=== PATIENT | female | born 1995 | race Caucasian/White ===

== ENCOUNTER → 2016-04-28 | Outpatient (CLI) | payer MEDICAID ==
--- NOTE | 2016-04-28 10:41 | RADRPT ---
PROCEDURE: OB Ultrasound. CLINICAL INDICATION: Positive test. Uncertain size and dates. TECHNIQUE: Ultrasound of the pelvis was performed with transabdominal sonography in the axial and sagittal planes. COMPARISON: No prior study is available for comparison. FINDINGS: There is a single intrauterine gestational sac. pole and yolk sac are present. There is heart motion. heart rate is 152 beats per minute. [place]-rump length is 2.63 cm. Mean sac diameter is 4.10 cm. Menstrual age by ultrasound dates is 9 weeks 4 days. This indicates an expected date of delivery of 11/27/2016. The right ovary measures 3.3 x 1.5 x 2.1 cm. The left ovary measures 3.2 x 1.7 x 1.9 cm. Color Doppler and pulsed Doppler sonography demonstrate normal flow to both ovaries. There is no ovarian enlargement or mass. There is no other pelvic mass or free fluid. IMPRESSION: 1. Single live intrauterine gestation of 9 weeks 4 days menstrual age by ultrasound dates. 2. Expected date of delivery is 11/27/2016. RPTAT: QQ .Sharif Carver MD, Date Time Electronically viewed and signed by .Sharif Carver MD, on 04/28/2016 10:41 .R/
== END | disposition home or self-care (01) ==
LOC: U/S 09:35
PROVIDERS: ATTEND Obstetrics & Gynecology
DX: O26.841 Uterine size-date discrepancy, first trimester (principal); Z3A.00 Weeks of gestation of pregnancy not specified
CPT/HCPCS: 76801

== ENCOUNTER 2016-11-20 14:09 | Inpatient (IN) | payer MEDICAID ==
[~2016-11-20] VITALS: Ht 160 cm; Wt 118.0 kg
[~2016-11-20 14:09] MED LIST: OXYTOCIN 30 UNITS/LR 500 ML BAG IV ONE
[2016-11-20] MEDS ORDERED: LACTATED RINGER'S 1,000 ML IV SCH (14:26)
[2016-11-20 14:28] VITALS: Ht 160 cm; Wt 118.0 kg
[2016-11-20] MEDS ORDERED: OXYTOCIN 30 UNITS/LR 500 ML IV PRN ×2 (14:30→21:00)
[2016-11-20] MEDS ORDERED: METHYLERGONOVINE 0.2 MG INJ IM PRN ×2 (14:30→21:00)
[2016-11-20] MEDS ORDERED: CEFAZOLIN 2 GM/50 ML (PMX) 50 ML IV SCH (14:30)
[2016-11-20] MEDS ORDERED: CARBOPROST 250 MCG INJ IM PRN ×2 (14:30→21:00)
[2016-11-20] MEDS ORDERED: MISOPROSTOL 200 MCG TAB PR PRN ×2 (14:30→21:00)
[2016-11-20] MEDS ORDERED: OXYTOCIN 30 UNITS/LR 500 ML IV SCH (14:30)
[2016-11-20 15:03] LABS: BASOPHILS % 0.3 % (0.0-2.0); EOSINOPHILS # 0.1 10^3/ul (0.0-0.5); EOSINOPHILS % 0.7 % (0.0-7.0); HEMATOCRIT 35.8 % (37.0-47.0); HEMOGLOBIN 12.3 g/dl (12.0-16.0); LYMPHOCYTES # 2.3 10^3/ul (0.8-2.9); LYMPHOCYTES % 21.7 % (15.0-51.0); MEAN CORPUSCULAR HEMOGLOBIN 29.4 pg (29.0-33.0); MEAN CORPUSCULAR HGB CONC 34.4 g/dl (32.0-37.0); MEAN CORPUSCULAR VOLUME 85.6 fl (82.0-101.0); MEAN PLATELET VOLUME 10.2 fl (7.4-10.4); MONOCYTE # 0.6 10^3/ul (0.3-0.9); MONOCYTES % 5.9 % (0.0-11.0); NEUTROPHILS % 71.1 % (39.0-77.0); PLATELET COUNT 299 10^3/UL (140-415); RED BLOOD COUNT 4.18 10^6/ul (4.20-5.40); RED CELL DISTRIBUTION WIDTH 13.6 % (11.5-14.5); WHITE BLOOD COUNT 10.4 10^3/ul (4.8-10.8)
[2016-11-20 15:14] LABS: INR 0.88; PROTIME 11.9 Sec (12.2-14.2); PT RATIO 0.9
[2016-11-20] MEDS ORDERED: CITRIC ACID/NA CITRATE 30 ML CUP ONE (15:14)
[2016-11-20 15:15] LABS: PARTIAL THROMBOPLASTIN TIME 27.1 Sec (25.0-35.0)
[2016-11-20] MEDS ORDERED: ONDANSETRON 4 MG INJ IV STA (15:15)
[2016-11-20] MEDS ORDERED: ONDANSETRON 4 MG INJ ONE (15:15)
[2016-11-20] MEDS ORDERED: CITRIC ACID/NA CITRATE 30 ML CUP PO ONE (15:30)
[2016-11-20] MEDS ORDERED: METOCLOPRAMIDE 10 MG INJ ONE (15:35)
[2016-11-20] MEDS ORDERED: DEXTROSE 50% 50 ML SYRINGE ONE (15:35)
[2016-11-20] MEDS ORDERED: morphine SULFATE/PF (10 MG/10 ML) INJ ONE (15:35)
[2016-11-20] MEDS ORDERED: OXYTOCIN 10 UNIT INJ ONE (15:35)
[2016-11-20] MEDS ORDERED: PHENYLephrine (100 MCG/ML) 5ML SYG ONE (15:35)
[2016-11-20] MEDS ORDERED: KETOROLAC 30 MG INJ ONE (15:36)
[2016-11-20] MEDS ORDERED: HYDROCODONE/APAP (5/325) TAB PO PRN ×2 (16:00→21:00)
[2016-11-20] MEDS ORDERED: HYDROmorphONE 1 MG/ML SYG IV PRN ×2 (16:00)
[2016-11-20] MEDS ORDERED: morphine 4 MG/ML VIAL IV PRN (16:00)
[2016-11-20] MEDS ORDERED: KETOROLAC 30 MG INJ IV PRN (16:00)
[2016-11-20] MEDS ORDERED: NALBUPHINE HCL (10 MG/1 ML) INJ IV PRN (16:00)
[2016-11-20] MEDS ORDERED: morphine 2 MG INJ IV PRN (16:00)
[2016-11-20] MEDS ORDERED: ACETAMINOPHEN 500 MG TAB PO PRN (16:00)
[2016-11-20] MEDS ORDERED: ONDANSETRON 4 MG INJ IV PRN (16:00)
[2016-11-20] MEDS ORDERED: DIPHENHYDRAMINE 50 MG INJ IV PRN (16:00)
[2016-11-20] MEDS ORDERED: NALOXONE (0.4 MG/ML) INJ IV PRN (16:00)
--- NOTE | 2016-11-20 16:34 | HP ---
Date/Time of Note Date/Time of Note DATE: 11/20/16 TIME: 16:31 OB - History Hx of Present Free Text/Dictation admitted for repeat C/S Last Menstrual Period: Jan 23, 2017 Estimated Due Date: Nov 27, 2016 : 3 Para: 2 Care: Good Care Ultrasounds: Normal mid trimester US Obstetrical Complications: None Medical Complications: None Past Family/Social History * Past Medical, Surgical, Family and Obstetric Histories reviewed from chart. Blood Type: O+ Rubella: immune RPR/VDRL: Negative GBS Status: Unknown HBsAG: Negative OB Admission Exam Physical Exam HEENT: WNL Heart: Rhythm Normal Lungs: Clear, Equal Abdomen: WNL Extremities: Normal Reflexes: Normal Cervical Dilatation: None Effacement: 0% Station: -3 Membranes: Intact Heart Rate: 130's Accelerations: Accelerations Present Decelerations: No Decelerations Varibility: Marked Contractions on Admission: None Last 72 hours Lab Results CBC & BMP 11/20/16 14:40 OB Assessment/Plan Reason for admission: section Other Assessment: term gestation previous C/S X 2 Other plan: repeat C/S JOHNNIE MONTGOMERY MD Nov 20, 2016 16:34
--- NOTE | 2016-11-20 16:36 | OPR ---
Operative Report Planned Procedure Procedure date Nov 20, 2016 Procedure(s) repeat C/S Performed by: JOHNNIE MONTGOMERY MD Assisting provider: ZAIDA MORRISON MD Anesthesiologist: TYRONE MATOS MD Pre-procedure diagnosis term gestation previous C/S X 2 Anesthesia Type: spinal Procedure Description Under satisfactory anaesthesia a Pfannenstiel incision was made two fingerbreadth above and parallel to the symphysis of pubis around the previous scar and previous scar was removed Incision was extended laterally to the border of the Recti muscles on either sides. Incision was carried down with sharp and blunt dissection until fascia was reached. Anterior Recti muscle fascia was incised in mid portion and incision extended laterally to the border of skin incision. Fascia was mobilized from muscle superiorly and Recti muscles were from midline using sharp and blunt dissection. Peritoneum was visualized; Avoiding bowel and bladder it was incised . Incision was extended superiorly and inferiorly. Bladder blade was placed. Posterior peritoneum covering the lower segment of the uterus and lower segment of the uterus were incised.Low transverse uteine incision was made on lower segment of the uterus. Incision extended laterally to the border of Round Lig. on either sides and baby was delivered from OT. position . Amniotic fluid appeared clear. Cord blood was obtained and cord had 3 vessels . Placenta was delivered spontaneously and appeared intact and complete. Intrauterine cavity was rubbed with a laparotomy sponge. Uterine incision was closed in 2 layers using running stitches of No1 Monocryl. Hemostasis appeared secure. Ovaries and Fallopian tubes were within normal limits. Announcing needle, lap sponge and instrument count to be correct abdomen was closed in layers as follows: Peritoneum and Recti muscles with running stitches of 20 Vicryl. Fascia with running stitch of No 1 PDS. Subcutaneous tissue with running stitches of 20 Chromic and skin was closed using lea. Patient tolerated the procedure well and was transferred to [facility] in good condition. Post-Procedure Post-procedure diagnosis S/P C/S Findings: Live Baby normal R and L fallopian tubes and ovaries Specimen removed: No Complications: None Pt Condition post procedure: stable Disposition: PACU Physician Certification I, the undersigned physician, hereby certify that I have discussed the procedure described in this consent form with this patient (or the patient's legal eligibility services representative), including: * The risk and benefits of the procedure; * Any adverse reactions that may reasonably be expected to occur; * Any alternative efficacious methods of treatment which may be medically viable ; * The potential problems that may occur during recuperation; * Potential for blood transfusion and associated risks/benefits; and * Any research or economic interest I may have regarding this treatment. I further certify that the patient/legally responsible person was encouraged to ask question and that all questions were answered. JOHNNIE MONTGOMERY MD Nov 20, 2016 16:36
[2016-11-20 20:40] VITALS: BP 127/74; PULSE 67; RESP 19
[2016-11-20] MEDS ORDERED: NA PHOSPHATE/BIPHOS 133 ML ENEMA PR PRN (21:00)
[2016-11-20] MEDS: SENNA/DOCUSATE NA (8.6MG/50MG) TAB PO SCH (21:00)
[2016-11-20] MEDS ORDERED: LANOLIN 7 GM TUBE TOP PRN (21:00)
[2016-11-20 21:40] VITALS: BP 120/68; PULSE 70; RESP 18
[2016-11-20] MEDS: IBUPROFEN 800 MG TAB PO SCH (22:00)
[2016-11-21] VITALS: BP 128/71; PULSE 73; RESP 19
[2016-11-21] MEDS: CEFAZOLIN 2 GM/50 ML (PMX) 50 ML IV SCH ×3 (00:45→16:45)
[2016-11-21] MEDS: LACTATED RINGER'S 1,000 ML IV SCH ×4 (01:11→20:47)
[2016-11-21 04:00] VITALS: BP 130/61; PULSE 76; RESP 18
--- NOTE | 2016-11-21 04:37 | OPPN ---
Date/Time of Note Date/Time of Note DATE: 11/21/16 TIME: 04:36 Post-Anesthesia Notes Post-Anesthesia Note Last documented vital signs Vital Signs Date Time Temp Pulse Resp B/P Pulse Ox O2 Delivery O2 Flow Rate FiO2 11/21/16 04:00 98.7 76 18 130/61 Room Air 11/21/16 01:17 95 21 Activity: WNL Respiratory function: WNL Cardiovascular function: WNL Mental status: Baseline Pain reasonably controlled: Yes Hydration appropriate: Yes Nausea/Vomiting absent: Yes TYRONE MATOS MD Nov 21, 2016 04:36
[2016-11-21] MEDS: IBUPROFEN 800 MG TAB PO SCH ×3 (06:00→21:53)
[2016-11-21] MEDS: CLINDAMYCIN 300 MG CAP PO SCH ×4 (06:00→23:41)
[2016-11-21 08:00] VITALS: BP 109/56; PULSE 75; RESP 18
[2016-11-21] MEDS: SENNA/DOCUSATE NA (8.6MG/50MG) TAB PO SCH ×2 (09:54→20:34)
[2016-11-21] MEDS ORDERED: BISACODYL 10 MG SUPP PR ONE (10:00)
[2016-11-21 10:20] LABS: BASOPHILS % 0.3 % (0.0-2.0); EOSINOPHILS % 0.3 % (0.0-7.0); HEMATOCRIT 33.5 % (37.0-47.0); HEMOGLOBIN 11.2 g/dl (12.0-16.0); LYMPHOCYTES # 2.2 10^3/ul (0.8-2.9); LYMPHOCYTES % 20.1 % (15.0-51.0); MEAN CORPUSCULAR HEMOGLOBIN 29.2 pg (29.0-33.0); MEAN CORPUSCULAR HGB CONC 33.4 g/dl (32.0-37.0); MEAN CORPUSCULAR VOLUME 87.5 fl (82.0-101.0); MEAN PLATELET VOLUME 10.1 fl (7.4-10.4); MONOCYTE # 0.9 10^3/ul (0.3-0.9); MONOCYTES % 8.6 % (0.0-11.0); NEUTROPHILS % 70.4 % (39.0-77.0); PLATELET COUNT 244 10^3/UL (140-415); RED BLOOD COUNT 3.83 10^6/ul (4.20-5.40); RED CELL DISTRIBUTION WIDTH 13.5 % (11.5-14.5); WHITE BLOOD COUNT 10.9 10^3/ul (4.8-10.8)
[2016-11-21 12:34] VITALS: BP 102/56; PULSE 69; RESP 18
--- NOTE | 2016-11-21 15:31 | PN ---
Date/Time of Note Date/Time of Note DATE: 11/21/16 TIME: 15:29 Assessment/Plan VTE Prophylaxis VTE Prophylaxis Intervention: ambulation Lines/Catheters IV Catheter Type (from Nrsg): Peripheral IV Assessment/Plan Assessment/Plan Status post postop day 1 We will advance diet and ambulate Monitor vital signs Subjective 24 Hr Interval Summary Passing flatus No bowel movement Complaint of incisional pain Symptoms come Constitutional: BM, ambulates, flatus, improved, no complaints, urine output Pain Control: well controlled Exam/Review of Systems Vital Signs Vitals Vital Signs Date Time Temp Pulse Resp B/P Pulse Ox O2 Delivery O2 Flow Rate FiO2 11/21/16 12:34 98.1 69 18 102/56 Room Air 11/21/16 11:15 95 21 Intake and Output 11/20/16 11/20/16 11/21/16 15:00 23:00 07:00 Intake Total 1825 ml 1300 ml Output Total 990 ml 1000 ml Balance 835 ml 300 ml Exam Free Text/Dictation Abdomen is soft bowel sounds present Incision is covered Abdomen is tender around incision Drains None Results Result Diagram: 11/21/16 0950 JOHNNIE MONTGOMERY MD Nov 21, 2016 15:31
[2016-11-21 16:15] VITALS: BP 97/56; PULSE 62; RESP 18
[2016-11-21] MEDS: OXYCODONE/ACETAMINOPHEN (5/325) TAB PO PRN (17:08)
[2016-11-21 20:00] VITALS: BP 118/63; PULSE 63; RESP 20
[2016-11-22] MEDS ORDERED: BISACODYL 10 MG SUPP PR SCH (02:16)
[2016-11-22 04:00] VITALS: BP 112/89; PULSE 63; RESP 18
[2016-11-22] MEDS: LACTATED RINGER'S 1,000 ML IV SCH (04:47)
[2016-11-22] MEDS: IBUPROFEN 800 MG TAB PO SCH ×3 (06:07→21:38)
[2016-11-22] MEDS: CLINDAMYCIN 300 MG CAP PO SCH ×4 (06:07→23:46)
[2016-11-22 08:00] VITALS: BP 110/74; PULSE 63; RESP 16
[2016-11-22] MEDS: SENNA/DOCUSATE NA (8.6MG/50MG) TAB PO SCH ×2 (09:54→21:00)
--- NOTE | 2016-11-22 11:21 | DS ---
Date/Time of Note Date/Time of Note Home next day DATE: 11/22/16 TIME: 11:20 Obstetrical Discharge Record Final Diagnosis Final Diagnosis: Term delivered Other Final Diagnosis Status post repeat Section Section: Repeat Condition on Discharge Physical Assessment Last Vitals: See nurse's note Voiding: Yes Bowel Movement: Yes Breast: Soft, non-tender, Filling Fundus: Firm Abdomen and Incision: Abdomen is soft, not distended Incision is without induration or erythema and healing well Episiotomy: Not applicable Calf Tenderness: No Patient Condition: Good JOHNNIE MONTGOMERY MD Nov 22, 2016 11:21
--- NOTE | 2016-11-22 11:22 | DS ---
Date/Time of Note Date/Time of Note Home next day DATE: 11/22/16 TIME: 11:21 Discharge Summary Admission/Discharge Info Admit Date/Time Nov 20, 2016 at 14:09 Discharge Date/Time November 23, 2016 Discharge Diagnosis Status post repeat Patient Condition: Good Procedures Repeat delivery Hx of Present Illness 21-year-old female underwent repeat section Hospital Course Uncomplicated Follow-up Plan 2 days in clinic for staple removal Primary Care Provider Care Physician No Primary Time spent on discharge: > 30 minutes JOHNNIE MONTGOMERY MD Nov 22, 2016 11:22
--- NOTE | 2016-11-22 11:23 | PD.PPDC ---
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
[2016-11-22] MEDS ORDERED: IBUP800T25 PO (11:25)
[2016-11-22 16:00] VITALS: BP 123/92; PULSE 65; RESP 16
[2016-11-22] MEDS: OXYCODONE/ACETAMINOPHEN (5/325) TAB PO PRN (17:29)
[2016-11-22 19:45] VITALS: BP 90/65; PULSE 77; RESP 18
[2016-11-23 04:07] VITALS: BP 118/81; PULSE 56; RESP 19
[2016-11-23] MEDS: IBUPROFEN 800 MG TAB PO SCH (05:41)
[2016-11-23] MEDS: CLINDAMYCIN 300 MG CAP PO SCH ×2 (05:41→12:24)
[2016-11-23 08:30] VITALS: BP 110/72; PULSE 52; RESP 16
[2016-11-23] MEDS ORDERED: MEASLES,MUMPS,RUBELLA VACCINE INJ SC* ONE (09:00)
[2016-11-23] MEDS: SENNA/DOCUSATE NA (8.6MG/50MG) TAB PO SCH (09:00)
[2016-11-23] MEDS ORDERED: DIPHTH/TET/ACEL PERTUSS (ADULT) 0.5 ML VIAL IM* ONE (09:00)
== END 2016-11-23 13:30 | disposition home or self-care (01) | DRG 766 ==
LOC: L-D 14:09 → PP1 21:06
PROVIDERS: ADMIT Obstetrics & Gynecology; ATTEND Obstetrics & Gynecology
PROC: 10D00Z1 Extraction of Products of Conception, Low, Open Approach (ICD-10-PCS; principal; 2016-11-20 15:30)
DX: O34.211 Maternal care for low transverse scar from previous cesarean delivery (principal); Z37.0 Single live birth; Z3A.39 39 weeks gestation of pregnancy
CPT/HCPCS: 85025; 85610; 85730; 86592; 86850; 86900; 86901; 87340; 90715; 94760; 99464; J0690; J1885; J2274; J2370; J2405; J2590; J2765; J7120